=== PATIENT | female | born 1995 | race American Indian/Alaskan Native ===

== ENCOUNTER 2019-12-25 19:11 | Emergency (ER) | payer MEDICAID, OTHER ==
[2019-12-25 21:47] VITALS: BP 109/75
[2019-12-26] MEDS ORDERED: IBUPROFEN 600 MG TAB PO ONE (01:54)
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
[2019-12-26] MEDS ORDERED: ACETAMINOPHEN 325 MG TAB PO ONE (02:25)
[2019-12-26] MEDS ORDERED: ACETAMINOPHEN 325 MG TAB ONE (02:26)
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
== END 2019-12-26 03:20 | disposition home or self-care (01) ==
LOC: ED 19:11
DX: S39.012A Strain of muscle, fascia and tendon of lower back, initial encounter (principal); R07.89 Other chest pain; M79.652 Pain in left thigh; M79.651 Pain in right thigh; J45.909 Unspecified asthma, uncomplicated; Z79.899 Other long term (current) drug therapy; V49.59XA Passenger injured in collision with other motor vehicles in traffic accident, initial encounter; Y93.89 Activity, other specified; Y92.488 Other paved roadways as the place of occurrence of the external cause; Y99.8 Other external cause status
CPT/HCPCS: 71046; 72100; 93005; 99283